=== PATIENT | female | born 1945 | race Caucasian/White ===

== ENCOUNTER 2017-01-28 05:23 | Inpatient (IN) | payer OTHER ==
[2017-01-15 13:18] LABS: HEMATOCRIT 44.6 % (37.0-47.0); HEMOGLOBIN 15.3 gm/dL (12.0-15.0); MCH 30.7 pg (26.0-34.0); MCHC 34.4 g/dL (28.0-37.0); MCV 89.4 fL (80.0-100.0); RBC 4.99 mil/uL (4.20-5.00); RDW 13.5 % (10.5-14.5); WBC 9.5 thou/uL (4.0-11.0)
[2017-01-15 13:19] LABS: URINE BILIRUBIN NEGATIVE (Negative); URINE BLOOD NEGATIVE (Negative); URINE COLOR YELLOW; URINE GLUCOSE-RANDOM* NEGATIVE (Negative); URINE KETONES NEGATIVE (Negative); URINE LEUKOCYTES-REFLEX TRACE (Negative); URINE PROTEIN (DIPSTICK) NEGATIVE (Negative); URINE SPECIFIC GRAVITY 1.015 (1.003-1.035); URINE UROBILINOGEN 0.2 E.U./dl (0.2-1.0)
[2017-01-15 13:26] LABS: ALBUMIN 3.5 g/dL (3.4-5.0); CREATININE 0.8 mg/dL (0.6-1.0); POTASSIUM 3.9 mmol/L (3.5-5.1)
[2017-01-15 13:32] LABS: PROTIME 10.7 Seconds (9.3-11.4)
[~2017-01-28] VITALS: Ht 157.5 cm; Wt 90.7 kg
[2017-01-28] VITALS (7 sets, daily range): BP systolic 112–146; BP diastolic 66–88
[~2017-01-28 05:23] MED LIST: ATORVASTATIN CA40 MG PO; CLARITIN10 MG PO; EFFEXOR 5050 MG/1 T1 PO; FLEXERIL PO; IMITREX100 MG PO; METFORMIN HCL500 MG PO; NABUMETONE 500500 M1 PO; NAPROSYN500 MG PO; NORCO 5-325 TA1 EACH PO; PERCOCET 10-321 EACH PO; PHENTERMINE H37.5 MG PO; TOPAMAX50 MG PO; VENLAFAXIN75 MG/1 T2 PO; VITAMIN B-12500 MCG PO; VITAMIN D1000 UNIT PO; XARELTO10 MG PO; ZETIA10 MG PO
[2017-01-29 01:37] VITALS: BP 129/69
[2017-01-29 04:00] VITALS: BP 122/73
[2017-01-29 06:31] LABS: HEMATOCRIT 43.9 % (37.0-47.0); HEMOGLOBIN 14.3 gm/dL (12.0-15.0); MCHC 32.5 g/dL (28.0-37.0); MCV 92.2 fL (80.0-100.0); RBC 4.76 mil/uL (4.20-5.00); RDW 13.6 % (10.5-14.5); WBC 15.5 thou/uL (4.0-11.0)
[2017-01-29 06:41] LABS: CREATININE 0.8 mg/dL (0.6-1.0)
[2017-01-29 08:00] VITALS: BP 140/74
[2017-01-29 12:00] VITALS: BP 141/78
[2017-01-29 15:22] VITALS: BP 123/69
[2017-01-29 19:23] VITALS: BP 124/70
[2017-01-30 03:59] VITALS: BP 114/67
[2017-01-30 05:53] LABS: HEMATOCRIT 37.8 % (37.0-47.0); HEMOGLOBIN 12.6 gm/dL (12.0-15.0); MCH 30.4 pg (26.0-34.0); MCHC 33.2 g/dL (28.0-37.0); MCV 91.5 fL (80.0-100.0); RBC 4.13 mil/uL (4.20-5.00); RDW 13.3 % (10.5-14.5); WBC 10.2 thou/uL (4.0-11.0)
[2017-01-30] MEDS ORDERED: XARELTO10 MG PO (06:47)
[2017-01-30 08:00] VITALS: BP 152/81
[2017-01-30 15:12] VITALS: BP 152/81
[2017-01-30 16:00] VITALS: BP 136/68
[2017-01-30 20:15] VITALS: BP 144/72
[2017-01-31 03:54] LABS: HEMATOCRIT 36.4 % (37.0-47.0); HEMOGLOBIN 12.2 gm/dL (12.0-15.0); MCH 30.6 pg (26.0-34.0); MCHC 33.5 g/dL (28.0-37.0); MCV 91.3 fL (80.0-100.0); RBC 3.98 mil/uL (4.20-5.00); RDW 13.3 % (10.5-14.5); WBC 10.6 thou/uL (4.0-11.0)
[2017-01-31 04:30] VITALS: BP 110/66
[2017-01-31 07:22] VITALS: BP 124/76
== END 2017-01-31 16:10 | disposition home health service (06) | DRG 470 ==
LOC: TBA 05:23 → 4N 05:23 → PRE 05:32 → 4N 13:44 → PRE 13:46 → ENTRNSPT 01-31 16:04 → 4N 01-31 16:10
PROVIDERS: Nurse Practitioner; Orthopaedic Surgery
PROC: 0SRD0JZ Replacement of Left Knee Joint with Synthetic Substitute, Open Approach (ICD-10-PCS; principal; 2017-01-28)
PROC: 3E0T3BZ Introduction of Anesthetic Agent into Peripheral Nerves and Plexi, Percutaneous Approach (ICD-10-PCS; principal; 2017-01-28)
DX: M17.12 Unilateral primary osteoarthritis, left knee (principal); E78.5 Hyperlipidemia, unspecified; Z96.651 Presence of right artificial knee joint; G43.909 Migraine, unspecified, not intractable, without status migrainosus; F32.9 Major depressive disorder, single episode, unspecified; Z87.442 Personal history of urinary calculi; Z98.42 Cataract extraction status, left eye; Z98.41 Cataract extraction status, right eye; Z87.891 Personal history of nicotine dependence
CPT/HCPCS: 10790; 50010; 50101; 50415; 50954; 51130; 51225; 51320; 51412; 51771; 52001; 53078; 53363; 56525; 56527; 62110; 62900; 64043; 65060; 70005

== ENCOUNTER → 2018-04-29 | Outpatient (CLI) | payer OTHER ==
[~2018-04-29] MED LIST changes: +COZAAR 50 MG TA50 M2 PO
--- NOTE | 2018-05-04 08:16 | P ---
[facility] [place] [address] PROCEDURE REPORT Name: TANYA OVALLE Room #: REG [facility].#: [id number] Admission: 04/29/18 ������������������ Attend Phys: Medhat Cano Discharge: ������������������ Date of : 47 Report #: [id number] THIS REPORT FOR: //name// CC: ANNELIESE MULLINS DATE OF SERVICE: 04/29/2018 PROCEDURE PERFORMED: Upper endoscopy with biopsies. HISTORY OF PRESENT ILLNESS: The patient is a 72-year-old female who began having left upper quadrant abdominal pain several months ago, was seen by her primary physician, Dr. Anneliese Bunn and a CT of the abdomen and pelvis was performed on 04/21/2018. This showed a large necrotic-appearing mass present in the body and tail of the pancreas. The mass extends into the posterior wall of the stomach, splenic flexure of the colon. Two lesions are also noted within the liver. Findings are most concerning for metastatic pancreatic cancer. The patient has had no history of cancer or pancreatic abnormalities in the past. The mass also involves the splenic artery and splenic vein. Colonoscopy was performed by myself in October of last year, which was essentially negative. She has had weight loss, but has been actively trying to lose weight. She denies any nausea or vomiting. Her bowel movements have been fairly normal. She denies any dysphagia. Plan is for upper endoscopy. DESCRIPTION OF PROCEDURE: The risks and benefits of the procedure were explained to the patient, those risks including but not limited to bleeding, perforation, and the risk of sedation. She understood these risks and gave informed consent. Sedation was given using propofol per anesthesia. Next, using a standard Olympus upper endoscope, the scope was placed in the patient's mouth and advanced under direct vision through the esophagus, stomach and into the second portion of the duodenum. The larynx was normal in appearance. The upper and mid esophagus was normal. In the distal esophagus, grade B erosive esophagitis was noted. Otherwise, negative. Close examination of the gastric mucosa showed a normal-appearing fundus on retroflexion. The mid body of the stomach was normal. The antrum was normal. On retroflexion, possible mild extrinsic compression was noted in the mid upper body of the stomach. No obvious mass lesions, no ulcerations were noted. Mild erythema was noted in this area. Several biopsies were obtained. The scope was then advanced into the antrum. The pylorus was normal and patent. In the duodenal bulb, there was mild duodenitis. No evidence of ulcerations. The first and second portion of the duodenum was normal. The scope was then brought back up into the patient's gastric antrum and biopsies were obtained to rule out the possibility of H. pylori. At this point, the scope was then withdrawn and the procedure terminated. The patient tolerated the procedure well. [address] [address] PROCEDURE REPORT Name: TANYA OVALLE Room #: REG [facility] Sarah#: [id number] Admission: 04/29/18 ������������������ Attend Phys: Medhat Cano Discharge: ������������������ Date of : 47 Report #: [id number] IMPRESSION: 1. Possible area of mild extrinsic compression in the upper body of the stomach with mild erythema. No obvious mass lesions or significant gastric mucosal abnormality; however, biopsies were obtained in this area. 2. Mild duodenitis in the duodenal bulb. 3. Grade B erosive esophagitis. RECOMMENDATIONS: 1. Await biopsy results. 2. Recommend daily PPI therapy. 3. The patient will likely need a percutaneous liver biopsy of mass lesions to further evaluate abnormal CT scan findings. Thank you for allowing me to participate in her care. ��������������������������������������������� <ELECTRONICALLY SIGNED> ���������������������������������������� By: Medhat Moon MD ��������������������������������������������� 05/04/18 0816 0931 [id number] Medhat Moon MD /nt
--- NOTE | 2018-05-04 13:07 | PATH ---
[facility] [place] [address] [place] [address] PATHOLOGY RPT PROCEDURE Name: TANYA OVALLE Room #: REG [facility] MFortinoR.#: [id number] ������������������ Admission: 04/29/18 ������������������ Date of : 47 Discharge: Report #: [id number] Path Case #: [id number] [facility] Accession Number: [id number] . 01 Material submitted: . PART A: BX UPPER BODY OF STOMACH PART B: BX GASTRIC ANTRUM R/O H. PYLORI . 01 Clinical history: . Pre-OP DX: Abnormal CT scan, possible pancreatic mass (metastatic) Post-OP DX: Abnormal CT, grade B erosive esophagitis . 02 Diagnosis: A. Gastric mucosa, upper body of stomach, endoscopic biopsy: - Features of mild reactive gastropathy. - Negative for intestinal metaplasia or atrophy. - Negative for Helicobacter pylori (properly controlled immunohistochemical stain performed). . B. Gastric mucosa, antrum, endoscopic biopsy: - Mild chronic gastritis with features of mild reactive gastropathy. - Negative for intestinal metaplasia or atrophy. - Negative for Helicobacter pylori (properly controlled immunohistochemical stain performed). . (IUV:tosin; 04/30/2018) MBTerry/04/30/2018 . 02 Electronically signed: . Theresa Mast MD, Pathologist NPI- [id number] . 01 Gross description: . A. Received in formalin labeled "Tanya Ovalle BX upper body of stomach," are 4 segments of neville soft tissue measuring 1.0 x 0.6 x 0.1 cm in aggregate dimensions and ranging from 0.2 to 0.5 cm in maximum dimension. The specimen is submitted entirely in cassette A1. . B. Received in formalin labeled "Tanya Ovalle BX gastric antrum, rule out H. pylori," are 2 segments of neville soft tissue measuring 0.9 x 0.2 x 0.2 cm in aggregate dimensions and ranging from 0.4 to 0.5 cm in maximum dimension. The specimen is submitted entirely in cassette B1. (TSD; 04/29/2018) TOB/TOB . 02 Pathologist provided ICD-10: K31.9, K29.50 [place] [address] PATHOLOGY RPT PROCEDURE Name: TANYA OVALLE Room #: REG [facility] ..#: [id number] ������������������ Admission: 04/29/18 ������������������ Date of : 47 Discharge: Report #: [id number] Path Case #: [id number] . 02 CPT . 976071, [id number], [id number] Specimen Comment: A courtesy copy of this report has been sent to Specimen Comment: [phone], . Specimen Comment: Report sent to / DR CHOUDHURY Specimen Comment: A duplicate report has been generated due to demographic updates. Performed at: [address] [facility], [place] [id number] MD Sheldon Conde MD Phone: [phone] Performed at: [address] [id number] MD Theresa Mast MD Phone: [phone]
== END | disposition home or self-care (01) ==
LOC: GI 06:59 → EDSTATUS 14:43
DX: K29.50 Unspecified chronic gastritis without bleeding (principal); K31.89 Other diseases of stomach and duodenum; K29.80 Duodenitis without bleeding; K20.9 Esophagitis, unspecified; M17.12 Unilateral primary osteoarthritis, left knee; Z96.652 Presence of left artificial knee joint; Z98.890 Other specified postprocedural states; Z79.899 Other long term (current) drug therapy
CPT/HCPCS: 62110; 62900